=== PATIENT | female | born 2000 | race Two or more races ===

== ENCOUNTER 2019-04-29 09:37 | Inpatient (IN) | payer SELFPAY ==
[~2019-04-29] VITALS: Ht 160 cm; Wt 77.7 kg
[2019-04-29] MEDS ORDERED: NS(*) 0.9% 1000 ML BAG 1,000 ML IV ONE ×2 (09:44→13:10)
[2019-04-29] MEDS ORDERED: ONDANSETRON 4 MG/2 ML VIAL IVP ONE (09:45)
[2019-04-29] MEDS ORDERED: KETOROLAC 30 MG/ML VIAL IVP ONE (09:45)
--- NOTE | 2019-04-29 09:45 | ER Report ---
History and Physical Time Seen By MD: 09:42 HPI/ROS CHIEF COMPLAINT: Headache, nausea, vomiting, diarrhea, dizziness HISTORY OF PRESENT ILLNESS: Patient is a 18-year-old female who comes in with complaint of headaches but more concerning for nausea vomiting and loose stools change in urine color as well as some epigastric abdominal pain. Symptoms began a few days ago and have continued to worsen. She reports subjective fevers at home. She reports some anorexia. She denies any chest pain or cough. She denies any prior history of similar episodes she denies and does report irregular menstrual periods but that is her norm. REVIEW OF SYSTEMS: Constitutional: Subjective fevers Eyes: No discharge. ENT: No sore throat. Cardiovascular: No chest pain, no palpitations. Respiratory: No cough, no shortness of breath. Gastrointestinal: Epigastric abdominal pain, nausea, vomiting, diarrhea Genitourinary: Mild dysuria with "change in urine color Musculoskeletal: No back pain. Skin: No rashes. Neurological: No headache. Allergies: Coded Allergies: No Known Allergies (Verified Allergy, Unknown, 04/29/19) Home Meds Active Scripts Oxycodone Hcl/Acetaminophen (PERCOCET 5-325 MG TABLET) 1 Each Tablet, 1 EACH PO Q4H for PAIN, #20 TAB 0 Refills Prov:SYDNI STEEN MD 04/29/19 Ondansetron Hcl (ZOFRAN) 4 Mg Tablet, 4 MG PO Q8H for Nausea, #15 TAB 0 Refills Prov:SDYNI STEEN MD 04/29/19 Cephalexin (KEFLEX) 500 Mg Capsule, 500 MG PO Q6H, #40 CAP 0 Refills TAKE ONE CAPSULE BY MOUTH EVERY SIX HOURS Prov:SYDNI STEEN MD 04/29/19 Past Medical/Surgical History contributory past medical history found Constitutional Vital Sign - Last 24 Hours 04/29/19 04/29/19 04/29/19 04/29/19 09:43 09:49 10:00 10:07 Temp 98.5 Pulse 114 103 Resp 14 B/P (MAP) 128/76 (93) 128/76 110/67 (81) Pulse Ox 97 98 O2 Delivery Room Air 04/29/19 04/29/19 04/29/19 04/29/19 10:30 10:37 11:00 11:07 Pulse 106 101 B/P (MAP) 116/77 (90) 114/69 (84) Pulse Ox 95 93 04/29/19 04/29/19 04/29/19 04/29/19 11:12 11:30 11:42 12:00 Pulse ??? 108 B/P (MAP) 113/61 (78) 120/76 (91) Pulse Ox 96 04/29/19 04/29/19 04/29/19 04/29/19 12:12 12:30 12:42 13:07 Temp 102.7 Pulse 106 105 B/P (MAP) 126/71 (89) Pulse Ox 88 93 Physical Exam General/Constitutional: Patient is awake, alert, nontoxic and in no acute respir atory distress. Head: Normocephalic and atraumatic. Eyes: Conjunctival clear, Sclera are clear and anicteric. Ears:External canals are clear. Tympanic membranes are clear with normal landmarks and light reflex. Nares: No rhinorrhea or bleeding. Turbinates are pink and moist. Oropharyngeal: Mucous membranes are moist. There is no pharyngeal erythema or exudate. There are no palatal petechiae. Uvula is midline and symmetrical. Neck: Supple, no adenopathy. Cardiovascular: Heart is regular rate and rhythm without audible murmurs, rubs or gallops. Pulmonary: Lungs are clear to auscultation bilaterally. There are no wheezes, rales, or rhonchi. Chest rise is symmetrical Abdomen: Soft with mild epigastric pain no guarding or rebound, with right sided CVA tenderness to percussion Extremities: No gross deformities, No peripheral cyanosis. Able to move all 4 extremities. Neuro: Alert and oriented X3, Skin: No rashes, skin is warm dry and well perfused. Medical Decision Making Data Points Result Diagram: 04/29/19 0954 04/29/19 0954 Laboratory Hematology Test 04/29/19 09:54 White Blood Count 13.7 k/uL (4.5-11.0) H Red Blood Count 5.00 M/uL (4.17-5.56) Hemoglobin 14.7 g/dL (12.0-16.0) Hematocrit 43.7 % (34.0-47.0) Mean Corpuscular Volume 87.3 fL (80.0-96.0) Mean Corpuscular Hemoglobin 29.4 pg (26.0-33.0) Mean Corpuscular Hemoglobin Concent 33.7 g/dL (32.0-36.0) Red Cell Distribution Width 13.3 % (11.5-14.5) Platelet Count 248 K/uL (150-450) Mean Platelet Volume 7.2 fL (7.2-11.1) Neutrophils (%) (Auto) 90.0 % (39.4-72.5) H Lymphocytes (%) (Auto) 3.6 % (17.6-49.6) L Monocytes (%) (Auto) 6.0 % (4.1-12.4) Eosinophils (%) (Auto) 0.1 % (0.4-6.7) L Basophils (%) (Auto) 0.3 % (0.3-1.4) Nucleated RBC Relative Count (auto) 0.0 /100WBC Neutrophils # (Auto) 12.3 K/uL (2.0-7.4) H Lymphocytes # (Auto) 0.5 K/uL (1.3-3.6) L Monocytes # (Auto) 0.8 K/uL (0.3-1.0) Eosinophils # (Auto) 0.0 K/uL (0.0-0.5) Basophils # (Auto) 0.0 K/uL (0.0-0.1) Nucleated RBC Absolute Count (auto) 0.00 K/uL Chemistry Test 04/29/19 09:54 Sodium Level 138 mmol/L (137-145) Potassium Level 3.4 mmol/L (3.5-5.0) Chloride Level 101 mmol/L (98-107) Carbon Dioxide Level 21 mmol/L (22-31) Blood Urea Nitrogen 10 mg/dl (7-18) Creatinine 0.80 mg/dl (0.52-1.04) Glomerular Filtration Rate Calc > 60.0 Random Glucose 110 mg/dl (75-110) Calcium Level 9.2 mg/dl (8.4-10.2) Total Bilirubin 0.7 mg/dl (0.2-1.3) Aspartate Amino Transf (AST/SGOT) 28 U/L (0-35) Alanine Aminotransferase (ALT/SGPT) 28 U/L (0-56) Alkaline Phosphatase 92 U/L (0-126) Total Protein 8.0 g/dl (6.3-8.2) Albumin 4.6 g/dl (3.5-5.0) Lipase 32 U/L (23-300) Serology Test 04/29/19 09:54 Helicobacter pylori IgG Antibody Negative (NEGATIVE) Urinalysis Test 04/29/19 09:39 Urine Color Yellow Urine Clarity Slightly-cloudy Urine pH 5.0 pH (4.8-9.5) Urine Specific [place] 1.015 Urine Protein 30 mg/dL (NEGATIVE) Urine Glucose (UA) Negative mg/dL (NEGATIVE) Urine Ketones 20 mg/dL (NEGATIVE) Urine Blood Moderate (NEGATIVE) Urine Nitrite Negative (NEGATIVE) Urine Bilirubin Negative (NEGATIVE) Urine Urobilinogen Negative mg/dL (0.2-1.9) Urine Leukocyte Esterase Trace (NEGATIVE) Urine RBC 30 /HPF (0-2/HPF) Urine WBC 41 /HPF (0-5/HPF) Urine Squamous Epithelial Cells Many /LPF (</=FEW) Urine Bacteria Few /HPF (NONE-FEW) Urine Mucus Few /HPF (NONE-FEW) Urine HCG, Qualitative Negative (NEGATIVE) EKG/Imaging Imaging FACILITY: [facility] PATIENT NAME: Mariam Montoya : 2000 MR: [id number] V: [id number] EXAM DATE: ORDERING PHYSICIAN: SYDNI STEEN TECHNOLOGIST[place] [facility] [place] : 2000 Visit/Account:[id number] Date of Sevice: 04/29/2019 EXAMINATION: CT Abdomen and Pelvis With Contrast 04/29/2019 10:52 AM HISTORY: RUQ epigastric pain TECHNIQUE: Spiral scan was through the abdomen and pelvis during injection of nonionic iodinated intravenous contrast. Contrast: 75 mL of IV Isovue 370. One of the following dose optimization techniques was utilized in the performance of this exam: Automated exposure control; adjustment of the mA and /or kV according to the patient's size; or use of an iterative reconstruction technique. Specific details can be referenced in the facility's radiology CT exam operational policy. COMPARISON STUDIES: none. FINDINGS: Liver / biliary: negative Pancreas: negative Spleen: negative Adrenal glands: negative Kidneys / retroperitoneum: Patchy hypoenhancing areas in both kidneys more notably on the right than the left. No organized encapsulated collection or abscess. No stone or obstruction on either side. Pelvic structures: Uterus is incidentally anteverted. Bowel / peritoneum / mesenteries: Negative. Normal appendix. Minimal free fluid in the pelvis is within physiologic normal range in a female of this age. Vessels: negative Musculoskeletal / Body wall: negative Lymph node assessment: negative Lower chest: negative IMPRESSION: 1. Patchy hypoenhancing areas in both kidneys more notably on the right than the left consistent with pyelonephritis. 2. Otherwise unremarkable study. Normal appendix. Report Dictated By: Chris Eller MD at 04/29/2019 11:54 AM Report E-Signed By: Chris Eller MD at 04/29/2019 11:58 AM [id number] ED Course/Re-evaluation ED Course Plan at this time will be abdominal workup along with urinalysis and a CT scan of the abdomen and pelvis. We will give IV fluids and antiemetics and pain medication. 04/29/2019 1:01:38 pm patient with elevated temperature and some Reiger's, at this point we will draw some blood cultures and we will admit to the hospital for diagnosis of pyelonephritis for IV antibiotics and observation. Decision to Disposition Date: Apr 29, 2019 Decision to Disposition Time: 13:07 Depart Departure Latest Vital Signs Vital Signs Date Time Temp Pulse Resp B/P (MAP) Pulse Ox O2 Delivery O2 Flow Rate FiO2 04/29/19 13:07 102.7 04/29/19 12:42 105 93 04/29/19 12:30 126/71 (89) 04/29/19 09:49 14 Room Air Impression: Primary Impression: Pyelonephritis Condition: Improved Disposition: Admitted from ER (to [facility]) New Scripts Oxycodone Hcl/Acetaminophen (PERCOCET 5-325 MG TABLET) 1 Each Tablet 1 EACH PO Q4H for PAIN, #20 TAB 0 Refills Prov: SYDNI STEEN MD 04/29/19 Ondansetron Hcl (ZOFRAN) 4 Mg Tablet 4 MG PO Q8H for Nausea, #15 TAB 0 Refills Prov: SYDNI STEEN MD 04/29/19 Cephalexin (KEFLEX) 500 Mg Capsule 500 MG PO Q6H, #40 CAP 0 Refills TAKE ONE CAPSULE BY MOUTH EVERY SIX HOURS Prov: SYDNI STEEN MD 04/29/19 Departure Forms: ER Transition Record, Medications Reconciliation, Off Work/School Form, School or Work Release?: Work Number of days to be released: 3 Patient Portal Information Patient Instructions: Kidney Infection (ED) Additional Instructions: Take your antibiotics as directed, if your symptoms do not improve in 48-72 hours you should return for reevaluation, if your symptoms worsen at any time he should return to the emergency department for reevaluation. SYDNI STEEN MD Apr 29, 2019 09:45
[2019-04-29 10:09] LABS: PLATELET COUNT, AUTOMATED 248 K/uL (150-450)
[2019-04-29] MEDS ORDERED: IOPAMIDOL 76% 100 ML INFUS BTL 100 ML ONE (11:19)
--- NOTE | 2019-04-29 12:06 | RADIOLOGY IMAGING REPORT ---
FACILITY: [facility] PATIENT NAME: Mariam Montoya : 2000 MR: [id number] V: [id number] EXAM DATE: ORDERING PHYSICIAN: SYDNI STEEN TECHNOLOGIST: Location: [facility] [place] Patient: Mariam Montoya : 2000 Visit/Account:[id number] Date of Sevice: 04/29/2019 EXAMINATION: CT Abdomen and Pelvis With Contrast 04/29/2019 10:52 AM HISTORY: RUQ epigastric pain TECHNIQUE: Spiral scan was through the abdomen and pelvis during injection of nonionic iodinated in travenous contrast. Contrast: 75 mL of IV Isovue 370. One of the following dose optimization techniques was utilized in the performance of this exam: Autom ated exposure control; adjustment of the mA and/or kV according to the patient's size; or use of an i terative reconstruction technique. Specific details can be referenced in the facility's radiology C T exam operational policy. COMPARISON STUDIES: none. FINDINGS: Liver / biliary: negative Pancreas: negative Spleen: negative Adrenal glands: negative Kidneys / retroperitoneum: Patchy hypoenhancing areas in both kidneys more notably on the right than the left. No organized encapsulated collection or abscess. No stone or obstruction on either side. Pelvic structures: Uterus is incidentally anteverted. Bowel / peritoneum / mesenteries: Negative. Normal appendix. Minimal free fluid in the pelvis is with in physiologic normal range in a female of this age. Vessels: negative Musculoskeletal / Body wall: negative Lymph node assessment: negative Lower chest: negative IMPRESSION: 1. Patchy hypoenhancing areas in both kidneys more notably on the right than the left consistent with pyelonephritis. 2. Otherwise unremarkable study. Normal appendix. Report Dictated By: Chris Eller MD at 04/29/2019 11:54 AM Report E-Signed By: Chris Eller MD at 04/29/2019 11:58 AM [id number]
[2019-04-29] MEDS ORDERED: cefTRIAXone(*) 1 GM VIAL 1 GM in NS(*) 0.9% 100 ML MINI-BAG 100 ML IVPB ONE (12:15)
[2019-04-29] MEDS ORDERED: ONDA4TAB97 PO (12:24)
[2019-04-29] MEDS ORDERED: OXYC-865 PO (12:24)
[2019-04-29] MEDS ORDERED: CEPH-13 PO (12:24)
[2019-04-29] MEDS ORDERED: ACETAMINOPHEN 325 MG TAB PO ONE (13:05)
[2019-04-29 13:55] VITALS: BP 129/75
[2019-04-29] MEDS ORDERED: INFLUENZA VIRUS VAC 0.5ML SYR IM ONLY ONE (14:35)
[2019-04-29] MEDS ORDERED: IBUPROFEN 600 MG TAB PO PRN (14:35)
--- NOTE | 2019-04-29 14:41 | History & Physical ---
History of Present Illness Chief Complaint Fever and flank pain History of Present Illness This patient presented to the emergency complaining of fever and right flank pain. Her symptoms started on Wednesday with diarrhea and vomiting, but those have now resolved. History Problems: (1) No significant medical problems Home Meds Active Scripts Oxycodone Hcl/Acetaminophen (PERCOCET 5-325 MG TABLET) 1 Each Tablet, 1 EACH PO Q4H for PAIN, #20 TAB 0 Refills Prov:SYDNI STEEN MD 04/29/19 Ondansetron Hcl (ZOFRAN) 4 Mg Tablet, 4 MG PO Q8H for Nausea, #15 TAB 0 Refills Prov:SYDNI STEEN MD 04/29/19 Cephalexin (KEFLEX) 500 Mg Capsule, 500 MG PO Q6H, #40 CAP 0 Refills TAKE ONE CAPSULE BY MOUTH EVERY SIX HOURS Prov:SYDNI STEEN MD 04/29/19 Allergies: Coded Allergies: No Known Allergies (Verified Allergy, Unknown, 04/29/19) Hx Smoking: No Hx Alcohol Use: Yes (s) Hx Substance Use Disorder: No Review of Systems All Systems Reviewed/Normal: Yes, Except as Noted Constitutional: Fever Genitourinary: Other (Flank pain) Exam Vital Signs Vital Signs Date Time Temp Pulse Resp B/P (MAP) Pulse Ox O2 Delivery O2 Flow Rate FiO2 04/29/19 14:08 94 04/29/19 14:00 100.3 04/29/19 13:55 107 18 129/75 (93) Room Air Neuro: No Gross deficits Eyes: PERRLA Cardiovascular: Regular Rate and Rhythm Respiratory: Clear to Auscultation GI: Abd Soft and Non-Tender : Other (Tender in right flank.) Extremities: No Edema Integumentary: No Cyanosis Medical Decision Making Data Points Result Diagram: 04/29/19 0954 04/29/19 0954 Assessment and Plan Problems: (1) Pyelonephritis Status: Acute Assessment & Plan: Her CT scan did show findings consistent with pyelonephritis. She has been started on empiric treatment with ceftriaxone. Venous Thromboembolism Antithrombotics Is Pt On Any Antithrombotics?: No Exam Sepsis Risk: Sepsis Risk RIVERA KLEIN DO Apr 29, 2019 14:40
[2019-04-29] MEDS: NS(*) 0.9% 1000 ML BAG 1,000 ML IV PRN ×2 (15:03→23:36)
[2019-04-29 19:30] VITALS: BP 109/63
[2019-04-29] MEDS: ACETAMINOPHEN 500 MG TAB PO PRN (19:34)
[2019-04-29] MEDS: PROMETHAZINE 25 MG/ML 1 ML AMP IVP PRN (19:35)
[2019-04-29 23:33] VITALS: BP 91/46
[2019-04-30 04:28] VITALS: BP 106/62
[2019-04-30] MEDS: ACETAMINOPHEN 500 MG TAB PO PRN ×2 (04:33→18:26)
[2019-04-30 05:32] LABS: PLATELET COUNT, AUTOMATED 187 K/uL (150-450)
[2019-04-30 07:49] VITALS: BP 91/51
--- NOTE | 2019-04-30 09:59 | Hospitalist Progress Note ---
Subjective Progress Notes Subjective She was admitted with pyelonephritis. She did have elevation in her WBC and fever overnight. She denies any complaints. She had no acute events overnight. Patient Complains of: Cardiovascular: No: Chest Pain Respiratory: No: Shortness of Breath Physical Exam Vital Signs Date Time Temp Pulse Resp B/P (MAP) Pulse Ox O2 Delivery O2 Flow Rate FiO2 04/30/19 07:49 98.7 87 16 91/51 (64) 95 Room Air Intake and Output 04/30/19 07:03 Intake Total 2544 ml Balance 2544 ml Intake Oral 200 ml IV Total 2344 ml # Voids 1 General Appearance: Alert, Awake, No Acute Distress Neuro: No Gross deficits Cardiovascular: Regular Rate and Rhythm Respiratory: No Respiratory Distress Psych: Alert & Oriented X3, Appropriate Mood & Affect Result Diagram: 04/30/19 0509 04/29/19 0954 Assessment and Plan Problems: (1) Pyelonephritis Status: Acute Assessment & Plan: Her CT scan did show findings consistent with pyelonephritis. She has been started on empiric treatment with ceftriaxone. U rine culture pending is growing gram negative shanice. Exam Sepsis Risk: No Definite Risk MARS VARELA CARPET FLOOR LAYER APPRENTICE Apr 30, 2019 09:59
--- NOTE | 2019-04-30 11:12 | Antimicrobial Stewardship ---
Antimicrobial Stewardship Empiricly appropriate: Yes Comment Started on Rocephin for Pyelonephritis Approriate Cultures done: Yes (Urine culture growing gram negative rods. Blood culture shows NGTD) Renal/Hepatic dosing: Yes Reviewed for Drug Interaction: Yes Monitored for Toxicities: Yes Clinically stable/improving: No Comment Still febrile IV to PO Opportunity: No (waiting on culture sensitivities) Determine cumulative duration: 10-14 days IBAN CORONA Apr 30, 2019 11:12
[2019-04-30 11:53] VITALS: Ht 160 cm; Wt 77.7 kg
[2019-04-30 12:08] VITALS: BP 114/68
[2019-04-30] MEDS: cefTRIAXone 2 GM VIAL IVP SCH (12:10)
[2019-04-30] MEDS: PROMETHAZINE 25 MG/ML 1 ML AMP IVP PRN (14:19)
[2019-04-30] MEDS: NS(*) 0.9% 1000 ML BAG 1,000 ML IV PRN (16:06)
[2019-04-30 18:21] VITALS: BP 103/58
[2019-04-30 20:04] VITALS: BP 103/65
[2019-04-30 22:41] VITALS: BP 90/48
[2019-05-01] MEDS: NS(*) 0.9% 1000 ML BAG 1,000 ML IV PRN (00:21)
[2019-05-01 02:57] VITALS: BP 112/72
[2019-05-01 06:35] LABS: PLATELET COUNT, AUTOMATED 169 K/uL (150-450)
[2019-05-01] MEDS: cefTRIAXone 2 GM VIAL IVP SCH (11:43)
[2019-05-01] MEDS: POTASSIUM CHL 20 MEQ TABCR PO SCH ×2 (11:44→16:53)
[2019-05-01 12:02] VITALS: BP 107/61
--- NOTE | 2019-05-01 13:12 | Hospitalist Progress Note ---
Subjective Progress Notes Subjective She reports much improvement in symptoms. She denies any complaints this morning. Patient Complains of: Cardiovascular: No: Chest Pain Respiratory: No: Shortness of Breath Physical Exam Vital Signs Date Time Temp Pulse Resp B/P (MAP) Pulse Ox O2 Delivery O2 Flow Rate FiO2 05/01/19 12:04 96 05/01/19 12:02 98.9 101 16 107/61 (76) Room Air Intake and Output 05/01/19 01:03 Intake Total 3438 ml Output Total 501 ml Balance 2937 ml Intake Oral 1480 ml IV Total 1958 ml Output Urine Total 1 ml Emesis 500 ml # Voids 2 # Emeses 1 General Appearance: Alert, Awake, No Acute Distress, Afebrile Neuro: No Gross deficits Cardiovascular: Regular Rate and Rhythm Respiratory: No Respiratory Distress, Clear to Auscultation GI: Soft and Non-Tender Extremities: Warm, Perfused; No Edema Psych: Alert & Oriented X3, Appropriate Mood & Affect Result Diagram: 05/01/19 0516 05/01/19 0516 Assessment and Plan Problems: (1) Pyelonephritis Status: Acute Assessment & Plan: Her CT scan did show findings consistent with pyelonep hritis. She was started on empiric treatment with ceftriaxone. Urine culture pending is growing Klebsiella Pneumonia, which is susceptible to Ceftriaxone. Will likely transition to Levaquin (starting tomorrow) for one more week of treatment. She appears much improved today. Exam Sepsis Risk: Sepsis Risk MARS VARELA SURGICAL GARMENT FITTER May 01, 2019 13:12
[2019-05-01] MEDS ORDERED: LEVO750T44 PO (16:33)
--- NOTE | 2019-05-01 16:37 | Hospitalist Depart ---
Discharge Summary Reason for Hosp/Final Diag: (1) Pyelonephritis Status: Acute Hospital Course & Plan: Her CT scan did show findings consistent with pyelonephritis. She was started on empiric treatment with ceftriaxone. Urine culture grew Klebsiella Pneumonia, which is susceptible to Ceftriaxone. Will transition to Levaquin (starting tomorrow) for one more week of treatment. She appears much improved today. Patient wanted to be discharged today. Patient was informed at least one more night would be beneficial, but she has obligations and would like to go home. Patient will be discharged at this time. She is eati ng and drinking without difficulty and denies any difficulty urinating. She was instructed to follow up in one week with PCP. She was given PCP list for [place]. Departure Latest Vital Signs Vital Signs 05/01/19 05/01/19 05/01/19 12:02 12:04 16:01 Temp 97.9 Pulse 101 Resp 16 B/P (MAP) 107/61 (76) Pulse Ox 96 O2 Delivery Room Air Weight (Pounds): 171 Weight (Ounces): 6.0 Result Diagram: 05/01/1951505/01/19515 Condition: Improved Discharge: Home, Self Care Discharge Instructions Home Meds Active Scripts Levofloxacin 750 Mg Tab (LEVAQUIN 750 MG TAB) 750 Mg Tablet, 750 MG PO DAILY for 7 Days, #7 TAB Prov:MARS VARELA 05/01/19 Discontinued Scripts Oxycodone Hcl/Acetaminophen (PERCOCET 5-325 MG TABLET) 1 Each Tablet, 1 EACH PO Q4H for PAIN, #20 TAB 0 Refills Prov:SYDNI STEEN MD 04/29/19 Ondansetron Hcl (ZOFRAN) 4 Mg Tablet, 4 MG PO Q8H for Nausea, #15 TAB 0 Refills Prov:SYDNI STEEN MD 04/29/19 Cephalexin (KEFLEX) 500 Mg Capsule, 500 MG PO Q6H, #40 CAP 0 Refills TAKE ONE CAPSULE BY MOUTH EVERY SIX HOURS Prov:SYDNI STEEN MD 04/29/19 Diet: Regular Activity: As Tolerated Special Instructions: Take Levaquin as prescribed. Increase fluids, at least 2Liters per day. Follow up with primary care provider in one week. Venous Thromboembolism Antithrombotics Is Pt On Any Antithrombotics?: No MARS VARELAP May 01, 2019 16:37
== END 2019-05-01 18:25 | disposition home or self-care (01) | DRG 690 ==
LOC: ER 09:40 → MED 13:31
PROVIDERS: ADMIT Family Medicine; ATTEND Family Medicine
DX: N10 Acute pyelonephritis (principal); B96.1 Klebsiella pneumoniae [K. pneumoniae] as the cause of diseases classified elsewhere
CPT/HCPCS: 36415; 74177; 81001; 81025; 82040; 82247; 82310; 82374; 82435; 82565; 82947; 83690; 84075; 84132; 84155; 84295; 84450; 84460; 84520; 85025; 86677; 87040; 87088; 87186; 96361; 96365; 96375; 99284; J0696; J1885; J2405; J2550; J7030; Q9967